=== PATIENT | male | born 1985 | race Caucasian/White ===

== ENCOUNTER → 2017-04-07 | Outpatient (CLI) | payer OTHER ==
--- NOTE | 2017-04-07 15:48 | RAD ---
Ultrasound abdomen complete 04/07/2017 Clinical indication: Abnormal liver function tests. Comparison: None. Findings: Pancreas is not well visualized. Visualized abdominal aorta and upper IVC unremarkable. Gallbladder is normal in size and configuration without wall thickening, pericholecystic fluid or cholelithiasis. No intra or extra hepatic biliary ductal dilatation. There is diffuse increased echogenicity in the near field parenchyma compatible with steatosis which significantly limits evaluation of the parenchyma, especially for masses. Liver is enlarged measuring 19.8 cm. Right kidney measures 12.2 cm in length without collecting system dilatation. Left kidney measures 13.4 cm in length without collecting system dilatation. Spleen measures 12.2 cm in length. Impression: 1. Hepatomegaly and diffuse hepatic steatosis. 2. No cholelithiasis or sonographic evidence of acute cholecystitis.
== END | disposition home or self-care (01) ==
LOC: US 10:51
PROVIDERS: ATTEND Family Medicine
DX: R16.0 Hepatomegaly, not elsewhere classified (principal); K76.0 Fatty (change of) liver, not elsewhere classified; R94.5 Abnormal results of liver function studies
CPT/HCPCS: 76700

== ENCOUNTER → 2021-03-13 | Outpatient (CLI) | payer OTHER ==
--- NOTE | 2021-03-13 09:41 | RAD ---
EXAM: Left lower extremity venous Doppler. HISTORY: Left lower extremity pain/swelling. COMPARISON: None. FINDINGS: Grayscale and Doppler analysis of the left lower extremity deep venous system was performed with graded compression and augmentation. The common femoral, greater saphenous, superficial femoral , popliteal and calf veins were assessed. There is no evidence of deep venous thrombosis. IMPRESSION: 1. No evidence of deep venous thrombosis. Electronically signed by: Leo Guerra MD (03/13/2021 9:38 AM) [id number]
== END ==
LOC: US 09:01
PROVIDERS: ATTEND Family Medicine
DX: I87.1 Compression of vein (principal); M79.605 Pain in left leg; V89.9XXA Person injured in unspecified vehicle accident, initial encounter
CPT/HCPCS: 93971